=== PATIENT | male | born 1995 | race Caucasian/White ===

== ENCOUNTER 2018-06-18 14:53 | Emergency (ER) | payer OTHER ==
[2018-06-18 15:00] VITALS: BP 120/79
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
== END 2018-06-18 16:31 | disposition home or self-care (01) ==
DX: R41.3 Other amnesia (principal); F07.81 Postconcussional syndrome; V49.49XD Driver injured in collision with other motor vehicles in traffic accident, subsequent encounter; Y92.410 Unspecified street and highway as the place of occurrence of the external cause